=== PATIENT | male | born 1955 | race Caucasian/White ===

== ENCOUNTER 2020-04-04 18:34 | Inpatient (IN) | payer MEDICARE ==
[~2020-04-04] VITALS: Ht 188 cm; Wt 83.6 kg
[2020-04-04 19:03] LABS: GLUCOSE,POINT OF CARE 101 MG/DL (70-110)
[2020-04-04] MEDS ORDERED: PANT-31 PO (19:08)
[2020-04-04] MEDS ORDERED: ASPI81TA87 PO (19:08)
[2020-04-04] MEDS ORDERED: CARV3.1231 PO (19:08)
[2020-04-04] MEDS ORDERED: ATOR10TA84 PO (19:08)
[2020-04-04] MEDS ORDERED: AMLO2.5T29 PO (19:08)
[2020-04-04] MEDS ORDERED: INSLAN SQ (19:08)
[2020-04-04] MEDS ORDERED: DULA0.75 SQ (19:08)
[2020-04-04] MEDS ORDERED: CLOP75TA60 PO (19:08)
[2020-04-04] MEDS ORDERED: OxyCODONE HCL/ACETAMINOPHEN 5-325 MG TABLET PO PRN (19:45)
[2020-04-04] MEDS ORDERED: ASPIRIN 81 MG CHEWABLE TABLET PO ONE (19:45)
[2020-04-04] MEDS ORDERED: ACETAMINOPHEN 325 MG TABLET PO PRN ×2 (19:45→20:15)
[2020-04-04] MEDS ORDERED: FUROSEMIDE 40 MG/4 ML VIAL IVP ONE (19:45)
[2020-04-04] MEDS ORDERED: DEXTROSE 50%-WATER 25 GM/50 ML SYRINGE IVP PRN (19:45)
[2020-04-04] MEDS ORDERED: 0.9% SODIUM CHLORIDE 10 ML SYRINGE IVP PRN (20:15)
[2020-04-04] MEDS ORDERED: ONDANSETRON HCL 4 MG/2 ML VIAL IVP PRN (20:15)
[2020-04-04] MEDS ORDERED: CARVEDILOL 3.125 MG TABLET PO SCH (21:00)
[2020-04-04 21:05] LABS: COVID AG,FIA SOURCE NASOPHARYNGEAL
[2020-04-04] MEDS: HEPARIN SODIUM,PORCINE 5,000 UNITS/ML VIAL SQ SCH (22:57)
[2020-04-04] MEDS: DOCUSATE SODIUM 100 MG CAPSULE PO SCH (22:57)
[2020-04-04 23:59] VITALS: BP 137/74
[2020-04-05] MEDS ORDERED: INFLUENZA VIRUS VACCINE QVS 2020-21 (6MO+)/PF 60 MCG/0.5 ML SYRINGE IM ONE (04:00)
[2020-04-05] MEDS ORDERED: PNEUMOCOCCAL VACCINE POLYVALENT 0.5 ML VIAL [PPSV23] IM ONE (04:00)
[2020-04-05 05:29] VITALS: BP 138/77
[2020-04-05 06:47] LABS: BASOPHILS % (AUTO) 1.7 % (0.0-2.0); EOSINOPHILS % (AUTO) 2.1 % (1.0-6.0); HEMATOCRIT 30.1 % (41-53); HEMOGLOBIN 9.9 g/dL (13.5-17.5); LYMPHOCYTES # (AUTO) 1.9 K/uL (1.0-4.8); LYMPHOCYTES % (AUTO) 30.9 % (22.0-44.0); MEAN CORPUSCULAR HEMOGLOBIN 28.3 pg (26.0-34.0); MEAN CORPUSCULAR HGB CONC 32.7 G/dL (31.0-37.0); MEAN CORPUSCULAR VOLUME 87 fL (80-100); MONOCYTES # (AUTO) 0.5 K/uL (0.1-1.0); MONOCYTES % (AUTO) 8.1 % (2.0-9.0); NEUTROPHILS # (AUTO) 3.6 K/uL (1.8-7.7); NEUTROPHILS % (AUTO) 57.2 % (40.0-70.0); PLATELET COUNT (AUTO) 335 K/uL (150-450); RED BLOOD CELL COUNT(AUTO) 3.48 MIL/uL (4.50-5.90); RED CELL DISTRIBUTION WIDTH 14.6 % (11.5-14.5)
[2020-04-05 07:32] LABS: ALBUMIN 2.8 g/dL (3.4-5.0); BILIRUBIN,TOTAL 0.7 mg/dL (0.1-1.0); CALCIUM, TOTAL 8.5 mg/dL (8.8-10.5); CREATININE 1.47 mg/dL (0.60-1.30); POTASSIUM 3.4 mmol/L (3.5-5.1)
[2020-04-05] MEDS ORDERED: ATOR40TA28 PO (07:32)
[2020-04-05] MEDS ORDERED: CARV6.2534 PO (07:32)
[2020-04-05] MEDS ORDERED: AMLO5TAB66 PO (07:32)
[2020-04-05 07:37] VITALS: BP 140/74
[2020-04-05] MEDS ORDERED: OMEP20 PO (07:40)
[2020-04-05] MEDS ORDERED: CHOL125C2 PO (07:40)
[2020-04-05] MEDS: ASPIRIN 81 MG CHEWABLE TABLET PO SCH (08:06)
[2020-04-05] MEDS: FAMOTIDINE 20 MG TABLET PO SCH (08:06)
[2020-04-05] MEDS: CARVEDILOL 12.5 MG TABLET PO SCH ×2 (08:06→21:53)
[2020-04-05] MEDS: DOCUSATE SODIUM 100 MG CAPSULE PO SCH ×2 (08:06→21:52)
[2020-04-05] MEDS: FUROSEMIDE 40 MG/4 ML VIAL IVP SCH (08:07)
[2020-04-05] MEDS: HEPARIN SODIUM,PORCINE 5,000 UNITS/ML VIAL SQ SCH ×2 (08:07→21:53)
[2020-04-05] MEDS: CHOLECALCIFEROL (VIT D3) 5,000 [125 MCG] UNITS CAPSULE PO SCH (08:18)
[2020-04-05 11:15] VITALS: BP 141/76
[2020-04-05] MEDS ORDERED: POTASSIUM CHL 10 MEQ/WATER 50 ML IV PRN (14:30)
[2020-04-05] MEDS ORDERED: POTASSIUM CHLORIDE 20 MEQ ER TABLET PO PRN (14:30)
[2020-04-05 15:45] VITALS: BP 137/78
[2020-04-05 21:32] VITALS: BP 131/79
[2020-04-06] VITALS (10 sets, daily range): BP systolic 118–161; BP diastolic 56–88
[2020-04-06] MEDS: OMEPRAZOLE 20 MG CAPSULE PO SCH (06:30)
[2020-04-06 07:27] LABS: BASOPHILS % (AUTO) 1.8 % (0.0-2.0); EOSINOPHILS % (AUTO) 4.1 % (1.0-6.0); HEMATOCRIT 29.2 % (41-53); HEMOGLOBIN 9.5 g/dL (13.5-17.5); LYMPHOCYTES # (AUTO) 1.8 K/uL (1.0-4.8); LYMPHOCYTES % (AUTO) 31.1 % (22.0-44.0); MEAN CORPUSCULAR HEMOGLOBIN 28.5 pg (26.0-34.0); MEAN CORPUSCULAR HGB CONC 32.6 G/dL (31.0-37.0); MEAN CORPUSCULAR VOLUME 87 fL (80-100); MONOCYTES # (AUTO) 0.5 K/uL (0.1-1.0); MONOCYTES % (AUTO) 9.1 % (2.0-9.0); NEUTROPHILS # (AUTO) 3.2 K/uL (1.8-7.7); NEUTROPHILS % (AUTO) 53.9 % (40.0-70.0); PLATELET COUNT (AUTO) 302 K/uL (150-450); RED BLOOD CELL COUNT(AUTO) 3.35 MIL/uL (4.50-5.90); RED CELL DISTRIBUTION WIDTH 14.8 % (11.5-14.5)
[2020-04-06 08:02] LABS: ALBUMIN 2.6 g/dL (3.4-5.0); BILIRUBIN,TOTAL 0.4 mg/dL (0.1-1.0); CALCIUM, TOTAL 8.3 mg/dL (8.8-10.5); CREATININE 1.53 mg/dL (0.60-1.30); TOTAL PROTEIN, SERUM 5.9 g/dL (6.4-8.2)
[2020-04-06] MEDS: CHOLECALCIFEROL (VIT D3) 5,000 [125 MCG] UNITS CAPSULE PO SCH (10:11)
[2020-04-06] MEDS: HEPARIN SODIUM,PORCINE 5,000 UNITS/ML VIAL SQ SCH ×2 (10:11→21:17)
[2020-04-06] MEDS: ASPIRIN 81 MG CHEWABLE TABLET PO SCH (10:11)
[2020-04-06] MEDS: CARVEDILOL 12.5 MG TABLET PO SCH ×2 (10:12→21:17)
[2020-04-06] MEDS: FAMOTIDINE 20 MG TABLET PO SCH (10:12)
[2020-04-06] MEDS: DOCUSATE SODIUM 100 MG CAPSULE PO SCH ×2 (10:12→21:17)
[2020-04-06] MEDS: FUROSEMIDE 40 MG/4 ML VIAL IVP SCH (10:12)
[2020-04-06] MEDS ORDERED: LIDOCAINE/PF 1% 30 ML VIAL ONE (13:00)
[2020-04-06] MEDS ORDERED: HEPARIN SODIUM 1000 UNITS/NS 1,000 ML ONE (13:01)
[2020-04-06] MEDS ORDERED: IOHEXOL 300 MG/ML 100 ML VIAL ONE (13:01)
[2020-04-06] MEDS ORDERED: IOHEXOL 300 MG/ML 50 ML VIAL ONE ×2 (13:01→13:55)
[2020-04-06] MEDS ORDERED: IOHEXOL 300 MG/ML 150 ML VIAL ONE (13:01)
[2020-04-06] MEDS ORDERED: SODIUM BICARBONATE 50 MEQ/50 ML VIAL ONE (13:01)
[2020-04-06] MEDS ORDERED: CARV12 PO (13:07)
[2020-04-06] MEDS ORDERED: FentaNYL CITRATE PF 100 MCG/2 ML VIAL ONE (13:28)
[2020-04-06] MEDS ORDERED: MIDAZOLAM HCL 2 MG/2 ML VIAL ONE (13:28)
[2020-04-06] MEDS ORDERED: LIDOCAINE 1% 30 ML/SOD BICARB 8.4% 4 ML SQ ONE (13:45)
[2020-04-06] MEDS ORDERED: HEPARIN SODIUM 1000 UNITS/NS 1,000 ML IARTER ONE (13:45)
[2020-04-06] MEDS ORDERED: MIDAZOLAM HCL 2 MG/2 ML VIAL IVP ONE (13:45)
[2020-04-06] MEDS ORDERED: IOHEXOL 300 MG/ML 50 ML VIAL IARTER ONE (13:45)
[2020-04-06] MEDS ORDERED: SODIUM CHLORIDE 0.9% 500 ML IV ONE (13:45)
[2020-04-06] MEDS ORDERED: IOHEXOL 300 MG/ML 100 ML VIAL IARTER ONE (13:45)
[2020-04-06] MEDS ORDERED: FentaNYL CITRATE PF 100 MCG/2 ML VIAL IVP ONE (13:45)
[2020-04-06] MEDS ORDERED: NITROGLYCERIN 400 MCG/SUBLINGUAL SPRAY 4.9 GM BOTTLE SL ONE (14:00)
[2020-04-06] MEDS: INSULIN LISPRO 100 UNITS/ML SQ PRN ×2 (17:02→21:35)
[2020-04-06 20:48] LABS: GLUCOMETER DEV NAME(LOC) 5S.1; GLUCOSE,POINT OF CARE 101 MG/DL (70-110)
[2020-04-06 20:48] LABS: GLUCOMETER DEV NAME(LOC) 5S.1; GLUCOSE,POINT OF CARE 105 MG/DL (70-110)
[2020-04-06 20:49] LABS: GLUCOMETER DEV NAME(LOC) 5S.1; GLUCOSE,POINT OF CARE 167 MG/DL (70-110)
[2020-04-06] MEDS: SACUBITRIL/VALSARTAN 24-26 MG TABLET PO SCH (21:17)
[2020-04-07 00:10] VITALS: BP 130/66
[2020-04-07 04:15] VITALS: BP 132/71
[2020-04-07] MEDS: OMEPRAZOLE 20 MG CAPSULE PO SCH (06:32)
[2020-04-07 08:05] LABS: BASOPHILS % (AUTO) 2.9 % (0.0-2.0); EOSINOPHILS % (AUTO) 3.5 % (1.0-6.0); HEMATOCRIT 32.2 % (41-53); HEMOGLOBIN 10.5 g/dL (13.5-17.5); LYMPHOCYTES % (AUTO) 30.8 % (22.0-44.0); MEAN CORPUSCULAR HEMOGLOBIN 28.2 pg (26.0-34.0); MEAN CORPUSCULAR HGB CONC 32.6 G/dL (31.0-37.0); MEAN CORPUSCULAR VOLUME 87 fL (80-100); MONOCYTES # (AUTO) 0.6 K/uL (0.1-1.0); MONOCYTES % (AUTO) 8.5 % (2.0-9.0); NEUTROPHILS # (AUTO) 3.5 K/uL (1.8-7.7); NEUTROPHILS % (AUTO) 54.3 % (40.0-70.0); PLATELET COUNT (AUTO) 348 K/uL (150-450); RED BLOOD CELL COUNT(AUTO) 3.72 MIL/uL (4.50-5.90); RED CELL DISTRIBUTION WIDTH 14.7 % (11.5-14.5)
[2020-04-07 08:15] VITALS: BP 142/79
[2020-04-07] MEDS: ASPIRIN 81 MG CHEWABLE TABLET PO SCH (08:29)
[2020-04-07] MEDS: DOCUSATE SODIUM 100 MG CAPSULE PO SCH ×2 (08:29→21:17)
[2020-04-07] MEDS: CHOLECALCIFEROL (VIT D3) 5,000 [125 MCG] UNITS CAPSULE PO SCH (08:29)
[2020-04-07] MEDS: FAMOTIDINE 20 MG TABLET PO SCH (08:29)
[2020-04-07] MEDS: SACUBITRIL/VALSARTAN 24-26 MG TABLET PO SCH ×2 (08:29→21:16)
[2020-04-07] MEDS: HEPARIN SODIUM,PORCINE 5,000 UNITS/ML VIAL SQ SCH ×2 (08:30→21:16)
[2020-04-07] MEDS: FUROSEMIDE 40 MG/4 ML VIAL IVP SCH (08:30)
[2020-04-07] MEDS: CARVEDILOL 12.5 MG TABLET PO SCH ×2 (08:30→21:17)
[2020-04-07 08:36] LABS: BILIRUBIN,TOTAL 0.5 mg/dL (0.1-1.0); CALCIUM, TOTAL 9.2 mg/dL (8.8-10.5); CREATININE 1.52 mg/dL (0.60-1.30); PHOSPHORUS 4.5 mg/dL (2.5-4.9); POTASSIUM 4.5 mmol/L (3.5-5.1); TOTAL PROTEIN, SERUM 6.5 g/dL (6.4-8.2)
[2020-04-07 09:55] LABS: CREATININE,URINE RANDOM 31.7 mg/dL (30.0-125.0)
[2020-04-07 11:19] VITALS: BP 142/68
[2020-04-07] MEDS: INSULIN LISPRO 100 UNITS/ML SQ PRN ×2 (12:26→21:23)
[2020-04-07 15:19] VITALS: BP 117/72
[2020-04-07 19:37] VITALS: BP 133/79
[2020-04-08] VITALS (7 sets, daily range): BP systolic 115–148; BP diastolic 56–78
[2020-04-08] MEDS: OMEPRAZOLE 20 MG CAPSULE PO SCH (06:16)
[2020-04-08 08:14] LABS: BASOPHILS % (AUTO) 1.7 % (0.0-2.0); EOSINOPHILS % (AUTO) 3.9 % (1.0-6.0); HEMATOCRIT 33.8 % (41-53); HEMOGLOBIN 11.1 g/dL (13.5-17.5); LYMPHOCYTES # (AUTO) 1.9 K/uL (1.0-4.8); LYMPHOCYTES % (AUTO) 27.2 % (22.0-44.0); MEAN CORPUSCULAR HEMOGLOBIN 28.7 pg (26.0-34.0); MEAN CORPUSCULAR HGB CONC 32.9 G/dL (31.0-37.0); MEAN CORPUSCULAR VOLUME 87 fL (80-100); MONOCYTES # (AUTO) 0.6 K/uL (0.1-1.0); MONOCYTES % (AUTO) 8.5 % (2.0-9.0); NEUTROPHILS # (AUTO) 4.2 K/uL (1.8-7.7); NEUTROPHILS % (AUTO) 58.7 % (40.0-70.0); PLATELET COUNT (AUTO) 345 K/uL (150-450); RED BLOOD CELL COUNT(AUTO) 3.87 MIL/uL (4.50-5.90); RED CELL DISTRIBUTION WIDTH 14.6 % (11.5-14.5)
[2020-04-08 08:23] LABS: CALCIUM, TOTAL 9.1 mg/dL (8.8-10.5); CREATININE 1.65 mg/dL (0.60-1.30); MAGNESIUM 1.9 mg/dL (1.80-2.40); PHOSPHORUS 4.9 mg/dL (2.5-4.9); POTASSIUM 4.5 mmol/L (3.5-5.1)
[2020-04-08] MEDS: ASPIRIN 81 MG CHEWABLE TABLET PO SCH (09:22)
[2020-04-08] MEDS: CHOLECALCIFEROL (VIT D3) 5,000 [125 MCG] UNITS CAPSULE PO SCH (09:22)
[2020-04-08] MEDS: FAMOTIDINE 20 MG TABLET PO SCH (09:22)
[2020-04-08] MEDS: DOCUSATE SODIUM 100 MG CAPSULE PO SCH ×2 (09:23→20:35)
[2020-04-08] MEDS: CARVEDILOL 12.5 MG TABLET PO SCH ×2 (09:23→20:35)
[2020-04-08] MEDS: FUROSEMIDE 40 MG/4 ML VIAL IVP SCH (09:23)
[2020-04-08] MEDS: HEPARIN SODIUM,PORCINE 5,000 UNITS/ML VIAL SQ SCH ×2 (09:23→20:36)
[2020-04-08] MEDS: SACUBITRIL/VALSARTAN 24-26 MG TABLET PO SCH ×2 (09:23→20:35)
[2020-04-08 13:24] LABS: APPEARANCE,URINE CLEAR (CLEAR); BILIRUBIN,URINE NEGATIVE (NEGATIVE); GLUCOSE, URINE (UA) NEGATIVE (NEGATIVE); KETONES,URINE NEGATIVE (NEGATIVE); LEUKOCYTE ESTERASE ,URINE NEGATIVE (NEGATIVE); NITRATE,URINE NEGATIVE (NEGATIVE); OCCULT BLOOD,URINE NEGATIVE (NEGATIVE); UROBILINOGEN,URINE 0.2 mg/dL (<=1.0)
[2020-04-08 13:31] LABS: PROTEIN,URINE NEGATIVE (NEGATIVE)
[2020-04-08 13:33] LABS: CALCIUM, TOTAL 9.3 mg/dL (8.8-10.5); CREATININE 1.52 mg/dL (0.60-1.30); POTASSIUM 4.6 mmol/L (3.5-5.1)
[2020-04-08] MEDS: INSULIN LISPRO 100 UNITS/ML SQ PRN (21:21)
[2020-04-09 04:00] VITALS: BP 122/67
[2020-04-09] MEDS: OMEPRAZOLE 20 MG CAPSULE PO SCH (06:08)
[2020-04-09 06:24] LABS: BASOPHILS % (AUTO) 2.8 % (0.0-2.0); EOSINOPHILS % (AUTO) 3.5 % (1.0-6.0); HEMATOCRIT 33.7 % (41-53); HEMOGLOBIN 10.8 g/dL (13.5-17.5); LYMPHOCYTES % (AUTO) 27.5 % (22.0-44.0); MEAN CORPUSCULAR HEMOGLOBIN 27.8 pg (26.0-34.0); MEAN CORPUSCULAR HGB CONC 31.9 G/dL (31.0-37.0); MEAN CORPUSCULAR VOLUME 87 fL (80-100); MONOCYTES # (AUTO) 0.7 K/uL (0.1-1.0); NEUTROPHILS # (AUTO) 4.1 K/uL (1.8-7.7); NEUTROPHILS % (AUTO) 56.2 % (40.0-70.0); PLATELET COUNT (AUTO) 326 K/uL (150-450); RED BLOOD CELL COUNT(AUTO) 3.86 MIL/uL (4.50-5.90)
[2020-04-09 07:18] LABS: CALCIUM, TOTAL 9.3 mg/dL (8.8-10.5); CREATININE 1.63 mg/dL (0.60-1.30); MAGNESIUM 1.9 mg/dL (1.80-2.40); POTASSIUM 4.5 mmol/L (3.5-5.1)
[2020-04-09 08:16] VITALS: BP 123/67
[2020-04-09] MEDS: DOCUSATE SODIUM 100 MG CAPSULE PO SCH ×2 (08:32→20:41)
[2020-04-09] MEDS: ASPIRIN 81 MG CHEWABLE TABLET PO SCH (08:32)
[2020-04-09] MEDS: HEPARIN SODIUM,PORCINE 5,000 UNITS/ML VIAL SQ SCH ×2 (08:32→20:41)
[2020-04-09] MEDS: CHOLECALCIFEROL (VIT D3) 5,000 [125 MCG] UNITS CAPSULE PO SCH (08:33)
[2020-04-09] MEDS: FAMOTIDINE 20 MG TABLET PO SCH (08:33)
[2020-04-09] MEDS: CARVEDILOL 12.5 MG TABLET PO SCH ×2 (08:33→20:41)
[2020-04-09] MEDS: FUROSEMIDE 40 MG/4 ML VIAL IVP SCH (08:33)
[2020-04-09] MEDS: SACUBITRIL/VALSARTAN 24-26 MG TABLET PO SCH ×2 (08:33→20:41)
[2020-04-09 11:05] VITALS: BP 161/79
[2020-04-09] MEDS: SODIUM CHLORIDE 0.9% 1,000 ML IV SCH (11:11)
[2020-04-09] MEDS: INSULIN LISPRO 100 UNITS/ML SQ PRN ×3 (11:51→20:42)
[2020-04-09 15:47] VITALS: BP 115/50
[2020-04-09 20:28] VITALS: BP 131/78
[2020-04-10] VITALS (7 sets, daily range): BP systolic 122–152; BP diastolic 61–82
[2020-04-10] MEDS: SODIUM CHLORIDE 0.9% 1,000 ML IV SCH (06:00)
[2020-04-10] MEDS: OMEPRAZOLE 20 MG CAPSULE PO SCH (06:03)
[2020-04-10 06:22] LABS: BASOPHILS % (AUTO) 1.3 % (0.0-2.0); EOSINOPHILS % (AUTO) 3.7 % (1.0-6.0); HEMATOCRIT 33.9 % (41-53); HEMOGLOBIN 10.9 g/dL (13.5-17.5); LYMPHOCYTES # (AUTO) 2.1 K/uL (1.0-4.8); LYMPHOCYTES % (AUTO) 26.4 % (22.0-44.0); MEAN CORPUSCULAR HEMOGLOBIN 27.8 pg (26.0-34.0); MEAN CORPUSCULAR HGB CONC 32.3 G/dL (31.0-37.0); MEAN CORPUSCULAR VOLUME 86 fL (80-100); MONOCYTES # (AUTO) 0.8 K/uL (0.1-1.0); MONOCYTES % (AUTO) 10.2 % (2.0-9.0); NEUTROPHILS # (AUTO) 4.6 K/uL (1.8-7.7); NEUTROPHILS % (AUTO) 58.4 % (40.0-70.0); PLATELET COUNT (AUTO) 338 K/uL (150-450); RED BLOOD CELL COUNT(AUTO) 3.92 MIL/uL (4.50-5.90); RED CELL DISTRIBUTION WIDTH 14.7 % (11.5-14.5)
[2020-04-10] MEDS ORDERED: LIDOCAINE/PF 1% 30 ML VIAL ONE (07:27)
[2020-04-10] MEDS ORDERED: IOHEXOL 300 MG/ML 50 ML VIAL ONE (07:27)
[2020-04-10] MEDS ORDERED: IOHEXOL 300 MG/ML 100 ML VIAL ONE (07:27)
[2020-04-10] MEDS ORDERED: SODIUM BICARBONATE 50 MEQ/50 ML VIAL ONE (07:27)
[2020-04-10] MEDS ORDERED: HEPARIN SODIUM 1000 UNITS/NS 1,000 ML ONE (07:28)
[2020-04-10] MEDS ORDERED: MIDAZOLAM HCL 2 MG/2 ML VIAL ONE (07:46)
[2020-04-10] MEDS ORDERED: FentaNYL CITRATE PF 100 MCG/2 ML VIAL ONE (07:46)
[2020-04-10] MEDS ORDERED: NITROGLYCERIN 50 MG/D5% WATER 0 ML ONE (08:21)
[2020-04-10] MEDS ORDERED: LIDOCAINE 1% 30 ML/SOD BICARB 8.4% 4 ML SQ ONE (08:30)
[2020-04-10] MEDS ORDERED: HEPARIN SODIUM 1000 UNITS/NS 1,000 ML IARTER ONE (08:30)
[2020-04-10] MEDS ORDERED: SODIUM CHLORIDE 0.9% 500 ML IV ONE (08:30)
[2020-04-10] MEDS ORDERED: MIDAZOLAM HCL 2 MG/2 ML VIAL IVP ONE (08:30)
[2020-04-10] MEDS ORDERED: FentaNYL CITRATE PF 100 MCG/2 ML VIAL IVP ONE (08:30)
[2020-04-10] MEDS ORDERED: IOHEXOL 300 MG/ML 50 ML VIAL IARTER ONE (08:30)
[2020-04-10] MEDS ORDERED: IOHEXOL 300 MG/ML 100 ML VIAL IARTER ONE (08:30)
[2020-04-10] MEDS ORDERED: HEPARIN SODIUM,PORCINE 5,000 UNITS/ML VIAL IVP ONE ×3 (08:30→09:30)
[2020-04-10] MEDS ORDERED: TICAGRELOR 90 MG TABLET ONE (08:33)
[2020-04-10] MEDS ORDERED: ASPIRIN 325 MG TABLET ONE (08:33)
[2020-04-10] MEDS ORDERED: IOHEXOL 300 MG/ML 150 ML VIAL ONE (08:34)
[2020-04-10] MEDS: CARVEDILOL 12.5 MG TABLET PO SCH (09:00)
[2020-04-10] MEDS ORDERED: ASPIRIN 325 MG TABLET PO ONE (09:00)
[2020-04-10] MEDS: DOCUSATE SODIUM 100 MG CAPSULE PO SCH ×2 (09:00→19:54)
[2020-04-10] MEDS: SACUBITRIL/VALSARTAN 24-26 MG TABLET PO SCH (09:00)
[2020-04-10] MEDS: FAMOTIDINE 20 MG TABLET PO SCH (09:00)
[2020-04-10] MEDS: ASPIRIN 81 MG CHEWABLE TABLET PO SCH (09:00)
[2020-04-10] MEDS: CHOLECALCIFEROL (VIT D3) 5,000 [125 MCG] UNITS CAPSULE PO SCH (09:00)
[2020-04-10] MEDS: FUROSEMIDE 40 MG/4 ML VIAL IVP SCH (09:00)
[2020-04-10] MEDS ORDERED: TICAGRELOR 90 MG TABLET PO ONE (09:00)
[2020-04-10] MEDS: HEPARIN SODIUM,PORCINE 5,000 UNITS/ML VIAL SQ SCH ×2 (09:00→19:55)
[2020-04-10] MEDS ORDERED: NITROGLYCERIN 400 MCG/SUBLINGUAL SPRAY 4.9 GM BOTTLE SL ONE (09:19)
[2020-04-10] MEDS ORDERED: NITROGLYCERIN 0.4 MG SUBLINGUAL TABLET #25 SL ONE (09:30)
[2020-04-10] MEDS ORDERED: SODIUM CHLORIDE 0.9% 1,000 ML IV SCH (10:00)
[2020-04-10] MEDS ORDERED: FUROSEMIDE 40 MG TABLET PO SCH (10:15)
[2020-04-10] MEDS: INSULIN LISPRO 100 UNITS/ML SQ PRN ×2 (18:13→20:48)
[2020-04-10] MEDS: TICAGRELOR 90 MG TABLET PO SCH (19:53)
[2020-04-10] MEDS: CARVEDILOL 25 MG TABLET PO SCH (19:54)
[2020-04-10] MEDS: SACUBITRIL/VALSARTAN 49-51 MG TABLET PO SCH (19:54)
[2020-04-10] MEDS: ATORVASTATIN CALCIUM 40 MG TABLET PO SCH (19:54)
[2020-04-11 00:02] VITALS: BP 128/65
[2020-04-11] MEDS: SODIUM CHLORIDE 0.9% 1,000 ML IV SCH (04:09)
[2020-04-11 04:43] VITALS: BP 119/61
[2020-04-11] MEDS: OMEPRAZOLE 20 MG CAPSULE PO SCH (05:45)
[2020-04-11 06:36] LABS: EOSINOPHILS % (AUTO) 3.3 % (1.0-6.0); HEMATOCRIT 34.2 % (41-53); HEMOGLOBIN 10.9 g/dL (13.5-17.5); LYMPHOCYTES # (AUTO) 1.7 K/uL (1.0-4.8); LYMPHOCYTES % (AUTO) 20.5 % (22.0-44.0); MEAN CORPUSCULAR HEMOGLOBIN 27.5 pg (26.0-34.0); MEAN CORPUSCULAR HGB CONC 31.9 G/dL (31.0-37.0); MEAN CORPUSCULAR VOLUME 86 fL (80-100); MONOCYTES # (AUTO) 0.9 K/uL (0.1-1.0); MONOCYTES % (AUTO) 11.1 % (2.0-9.0); NEUTROPHILS # (AUTO) 5.3 K/uL (1.8-7.7); NEUTROPHILS % (AUTO) 64.1 % (40.0-70.0); PLATELET COUNT (AUTO) 340 K/uL (150-450); RED BLOOD CELL COUNT(AUTO) 3.97 MIL/uL (4.50-5.90); RED CELL DISTRIBUTION WIDTH 14.9 % (11.5-14.5)
[2020-04-11 07:03] LABS: CALCIUM, TOTAL 9.3 mg/dL (8.8-10.5); CREATININE 1.72 mg/dL (0.60-1.30); MAGNESIUM 1.9 mg/dL (1.80-2.40); PHOSPHORUS 4.6 mg/dL (2.5-4.9)
[2020-04-11 08:02] VITALS: BP 142/71
[2020-04-11] MEDS: ASPIRIN 81 MG CHEWABLE TABLET PO SCH (08:03)
[2020-04-11] MEDS: HEPARIN SODIUM,PORCINE 5,000 UNITS/ML VIAL SQ SCH ×2 (08:03→19:53)
[2020-04-11] MEDS: FAMOTIDINE 20 MG TABLET PO SCH (08:04)
[2020-04-11] MEDS: DOCUSATE SODIUM 100 MG CAPSULE PO SCH ×3 (08:04→19:53)
[2020-04-11] MEDS: CARVEDILOL 25 MG TABLET PO SCH ×2 (08:04→19:50)
[2020-04-11] MEDS: CHOLECALCIFEROL (VIT D3) 5,000 [125 MCG] UNITS CAPSULE PO SCH (08:04)
[2020-04-11] MEDS: TICAGRELOR 90 MG TABLET PO SCH ×2 (08:04→19:51)
[2020-04-11] MEDS: SACUBITRIL/VALSARTAN 49-51 MG TABLET PO SCH ×2 (08:04→19:49)
[2020-04-11] MEDS ORDERED: EZETIMIBE 10 MG TABLET PO SCH (09:00)
[2020-04-11 11:00] VITALS: BP 129/71
[2020-04-11] MEDS: INSULIN LISPRO 100 UNITS/ML SQ PRN ×2 (11:23→17:43)
[2020-04-11 15:39] VITALS: BP 136/66
[2020-04-11] MEDS ORDERED: ATOR40TA28 PO (18:08)
[2020-04-11] MEDS ORDERED: CARV25 PO (18:09)
[2020-04-11] MEDS ORDERED: FURO40 PO (18:14)
[2020-04-11] MEDS ORDERED: EZET10TA13 PO (18:14)
[2020-04-11] MEDS ORDERED: SACU1TAB7 PO (18:16)
[2020-04-11] MEDS ORDERED: DULA0.75 SQ (18:18)
[2020-04-11] MEDS ORDERED: INSLAN SQ (18:19)
[2020-04-11 19:40] VITALS: BP 138/66
[2020-04-11] MEDS: ATORVASTATIN CALCIUM 40 MG TABLET PO SCH (19:49)
[2020-04-12 20:52] LABS: GLUCOMETER DEV NAME(LOC) 5S.1; GLUCOSE,POINT OF CARE 163 MG/DL (70-110)
[2020-04-12 20:53] LABS: GLUCOMETER DEV NAME(LOC) 5S.1; GLUCOSE,POINT OF CARE 175 MG/DL (70-110)
[2020-04-12 20:53] LABS: GLUCOMETER DEV NAME(LOC) 5S.1; GLUCOSE,POINT OF CARE 171 MG/DL (70-110)
[2020-04-12 20:53] LABS: GLUCOMETER DEV NAME(LOC) 5S.1; GLUCOSE,POINT OF CARE 134 MG/DL (70-110)
[2020-04-12 20:53] LABS: GLUCOMETER DEV NAME(LOC) 5S.1; GLUCOSE,POINT OF CARE 230 MG/DL (70-110)
[2020-04-12 20:53] LABS: GLUCOMETER DEV NAME(LOC) 5S.1; GLUCOSE,POINT OF CARE 116 MG/DL (70-110)
[2020-04-13 12:06] LABS: GLUCOMETER DEV NAME(LOC) 5S.2B; GLUCOSE,POINT OF CARE 72 MG/DL (70-110)
[2020-04-13 12:07] LABS: GLUCOMETER DEV NAME(LOC) 5S.2B; GLUCOSE,POINT OF CARE 190 MG/DL (70-110)
[2020-04-13 12:07] LABS: GLUCOMETER DEV NAME(LOC) 5S.2B; GLUCOSE,POINT OF CARE 150 MG/DL (70-110)
[2020-04-13 12:07] LABS: GLUCOMETER DEV NAME(LOC) 5S.2B; GLUCOSE,POINT OF CARE 124 MG/DL (70-110)
[2020-04-13 12:07] LABS: GLUCOMETER DEV NAME(LOC) 5S.2B; GLUCOSE,POINT OF CARE 120 MG/DL (70-110)
[2020-04-13 12:07] LABS: GLUCOMETER DEV NAME(LOC) 5S.2B; GLUCOSE,POINT OF CARE 101 MG/DL (70-110)
[2020-04-13 12:07] LABS: GLUCOMETER DEV NAME(LOC) 5S.2B; GLUCOSE,POINT OF CARE 230 MG/DL (70-110)
[2020-04-13 12:08] LABS: GLUCOMETER DEV NAME(LOC) 5S.2B; GLUCOSE,POINT OF CARE 137 MG/DL (70-110)
[2020-04-13 12:08] LABS: GLUCOMETER DEV NAME(LOC) 5S.2B; GLUCOSE,POINT OF CARE 202 MG/DL (70-110)
[2020-04-13 12:08] LABS: GLUCOMETER DEV NAME(LOC) 5S.2B; GLUCOSE,POINT OF CARE 123 MG/DL (70-110)
[2020-04-13 12:08] LABS: GLUCOMETER DEV NAME(LOC) 5S.2B; GLUCOSE,POINT OF CARE 195 MG/DL (70-110)
[2020-04-13 12:08] LABS: GLUCOMETER DEV NAME(LOC) 5S.2B; GLUCOSE,POINT OF CARE 168 MG/DL (70-110)
[2020-04-13 12:08] LABS: GLUCOMETER DEV NAME(LOC) 5S.2B; GLUCOSE,POINT OF CARE 160 MG/DL (70-110)
[2020-04-13 12:09] LABS: GLUCOMETER DEV NAME(LOC) 5S.2B; GLUCOSE,POINT OF CARE 155 MG/DL (70-110)
[2020-04-13 12:09] LABS: GLUCOMETER DEV NAME(LOC) 5S.2B; GLUCOSE,POINT OF CARE 172 MG/DL (70-110)
== END 2020-04-11 20:00 | disposition home or self-care (01) | DRG 246 ==
LOC: EMS 18:34 → 5S 22:25
PROVIDERS: ADMIT Internal Medicine; ATTEND Internal Medicine
PROC: 3E0234Z Introduction of Serum, Toxoid and Vaccine into Muscle, Percutaneous Approach (ICD-10-PCS; 2020-04-05)
PROC: 3E02340 Introduction of Influenza Vaccine into Muscle, Percutaneous Approach (ICD-10-PCS; 2020-04-05)
PROC: 4A023N7 Measurement of Cardiac Sampling and Pressure, Left Heart, Percutaneous Approach (ICD-10-PCS; principal; 2020-04-06)
PROC: B211YZZ Fluoroscopy of Multiple Coronary Arteries using Other Contrast (ICD-10-PCS; 2020-04-06)
PROC: B215YZZ Fluoroscopy of Left Heart using Other Contrast (ICD-10-PCS; 2020-04-06)
PROC: B41FYZZ Fluoroscopy of Right Lower Extremity Arteries using Other Contrast (ICD-10-PCS; 2020-04-06)
PROC: 027137Z Dilation of Coronary Artery, Two Arteries with Four or More Drug-eluting Intraluminal Devices, Percutaneous Approach (ICD-10-PCS; 2020-04-10)
DX: I25.10 Atherosclerotic heart disease of native coronary artery without angina pectoris (principal); J96.01 Acute respiratory failure with hypoxia; I13.0 Hypertensive heart and chronic kidney disease with heart failure and stage 1 through stage 4 chronic kidney disease, or unspecified chronic kidney disease; N17.9 Acute kidney failure, unspecified; I50.9 Heart failure, unspecified; E11.21 Type 2 diabetes mellitus with diabetic nephropathy; E11.40 Type 2 diabetes mellitus with diabetic neuropathy, unspecified; E11.22 Type 2 diabetes mellitus with diabetic chronic kidney disease; E11.51 Type 2 diabetes mellitus with diabetic peripheral angiopathy without gangrene; E11.319 Type 2 diabetes mellitus with unspecified diabetic retinopathy without macular edema; E78.00 Pure hypercholesterolemia, unspecified; Z20.822 Contact with and (suspected) exposure to COVID-19; D64.9 Anemia, unspecified; E78.5 Hyperlipidemia, unspecified; N18.9 Chronic kidney disease, unspecified; I25.2 Old myocardial infarction; Z79.4 Long term (current) use of insulin; Z79.82 Long term (current) use of aspirin; Z79.899 Other long term (current) drug therapy; Z83.3 Family history of diabetes mellitus; Z86.73 Personal history of transient ischemic attack (TIA), and cerebral infarction without residual deficits; Z87.891 Personal history of nicotine dependence; Z89.511 Acquired absence of right leg below knee; Z89.512 Acquired absence of left leg below knee; Z98.49 Cataract extraction status, unspecified eye; Z23 Encounter for immunization; Z82.49 Family history of ischemic heart disease and other diseases of the circulatory system
CPT/HCPCS: 76770; 82570; 83735; 84100; 84132; 84156; 87426; 92920; 92921; 92928; 92929; 93005; 93306; 99285; A9575; J1644; J1940; J2250; J3010; J3490; J7030; Q9967; 36415-L1; 36415-TC; 71045-TC; 81003-TC; U0003